=== PATIENT | male | born 1975 | race Two or more races ===

== ENCOUNTER 2021-08-09 15:37 | Emergency (ER) | payer BC, OTHER ==
[2021-08-09 16:08] VITALS: BP 144/100; PULSE 81
[2021-08-09] MEDS ORDERED: HYDROmorphone 1 MG/ML Syringe IM ONE (17:47)
== END 2021-08-09 20:45 | disposition home or self-care (01) ==
LOC: SUPCPDRO 15:37 → JD.ED 15:37
DX: I80.251 Phlebitis and thrombophlebitis of right calf muscular vein (principal); Z86.16 Personal history of COVID-19
CPT/HCPCS: 93971; 96372; 99283; J1170; 99284

== ENCOUNTER 2022-02-05 15:41 | Emergency (ER) | payer BC, OTHER ==
[2022-02-05 16:17] VITALS: BP 152/103; PULSE 82
[2022-02-05] MEDS ORDERED: Prochlorperazine 5 MG Tab PO ONE (17:47)
[2022-02-05] MEDS ORDERED: Acetaminophen/oxyCODONE 325-5 MG Tab PO ONE (17:47)
== END 2022-02-05 18:23 | disposition home or self-care (01) ==
LOC: JD.ED 15:41
DX: S06.0X0A Concussion without loss of consciousness, initial encounter (principal); S13.4XXA Sprain of ligaments of cervical spine, initial encounter; S40.021A Contusion of right upper arm, initial encounter; S20.229A Contusion of unspecified back wall of thorax, initial encounter; Z86.16 Personal history of COVID-19; W00.0XXA Fall on same level due to ice and snow, initial encounter
CPT/HCPCS: 70450; 72125; 72128; 73090; 73130; 99283; A9270; Q0164